=== PATIENT | male | born 1945 | race Caucasian/White ===

== ENCOUNTER 2017-02-25 18:09 | Inpatient (IN) | payer MEDICARE, OTHER ==
[~2017-02-25] VITALS: Ht 177.8 cm; Wt 68.0 kg
--- NOTE | 2017-02-25 18:19 | NUR ---
NEGRO FROM [facility] [place] [facility] FOR MEDICAL CLEARANCE DT DEPRESSION, POSSIBLE GPS ADMISSION. PATIENT IS ON 5150 HOLD- PER REPORT PT HAS BEEN DEPRESSED, BEEN READING ABOUT STAGES OF FOT THE PAST 3 DAYS. PATIENT IS AAO3, APPEARS IN NO APPARENT DISTRESS, RESPIRATION EVEN AND UNLABORED,. PT DENIES ACTUAL PLAN FOR SI. DENIES HALLUCINATION HOWEVER PT ADMITTED BEING DEPRESSED, NOT EATING AND INTERESTED IN LEARNING ABOUT "STAGES OF ". PATIENT IS AFEBRILE. VSS,.
--- NOTE | 2017-02-25 18:25 | NUR ---
URINE SAMPLE SENT TO LAB
[2017-02-25] MEDS ORDERED: AMLO5TAB2 PO (18:56)
[2017-02-25] MEDS ORDERED: LISI40TA4 PO (18:56)
[2017-02-25] MEDS ORDERED: HYDR25TA4 PO (18:56)
[2017-02-25] MEDS ORDERED: DIAZ10TA4 PO (18:59)
[2017-02-25] MEDS ORDERED: ATOR10TA PO (18:59)
[2017-02-25] MEDS ORDERED: ASPI81TA2 PO (18:59)
[2017-02-25] MEDS ORDERED: MULT-659 PO (18:59)
[2017-02-25] MEDS ORDERED: NALT50TA10 PO (19:04)
[2017-02-25] MEDS ORDERED: NAPR500T3 PO (19:04)
[2017-02-25] MEDS: LISINOPRIL (20MG) 20 MG TABLET PO SCH (19:10)
--- NOTE | 2017-02-25 19:32 | NUR ---
report given to beto wharton for gps admission.
--- NOTE | 2017-02-25 19:37 | NUR ---
transported to gps room 261 - 2, no incident noted.
[2017-02-25 19:45] VITALS: BP 148/79
--- NOTE | 2017-02-25 19:45 | NUR ---
GPS ADMISSION NOTE, [place] [facility] [place]IENT ARRIVED ON THIS UNIT AT 1945 VIA WHEELCHAIR WITH 1 LARD MAKER ESCORT. PATIENT ADMITTED ON A 5150 HOLD FOR DTS. PER HOLD PATIENT HAS NO APPETITE, NOT SLEEPING AT NIGHT, HAS BEEN THINKING ABOUT , AND STATES, "WHY GO ON ". THE 5150 WAS REVIEWED AND THE DOCUMENTATION IN THE 5150 HOLD APPEARS TO REFLECT THE PRESENTATION OF THE PATIENT. UPON FACE TO FACE ASSESSMENT PATIENT IS CURRENTLY LYING IN BED AWAKE, HAS NO S/S OR COMPLAINTS OF PAIN. PATIENT IS DISPLAYING NO S/S OF APPARENT DISTRESS. PATIENT BREATHING IS UNLABORED WITH EQUAL RISE AND FALL OF THE CHEST. PATIENT IS ALERT AND ORIENTATED X 3 ON ROOM AIR. PATIENT ASSISTED WITH TURING AND REPOSITIONING Q2HR AND PRN FOR COMFORT AND CIRCULATION. PATIENT HAS NO NEEDS AT THIS TIME. PATIENT IS NOTED TO BEING WITHDRAWN, DEPRESSED, DISHEVELED, DISORGANIZED, COOPERATIVE, AND NEEDS REDIRECTION. PATIENT DENIES SUICIDE IDEATIONS, HAS NO PLAN, AND HOMICIDAL IDEATIONS AT THIS TIME. PATIENT IS UNDER THE PSYCHIATRIC CARE OF DR. SEAY AND THE MEDICAL CARE OF DR RAO. PATIENT BELONGINGS WERE INVENTORIED AND CHECKED FOR CONTRABAND. ALL CONTRABAND REMOVED AND STORED IN PATIENT HALLWAY LOCKER. PATIENT ADVANCED DIRECTIVES PREFERENCE, IMMUNIZATIONS QUESTIONER, NECESSARY PAPERWORK, AND SKIN ASSESSMENT COMPLETED. PATIENT ORIENTATED TO ROOM, FLOOR, AND STAFF WITH ALL QUESTIONS ANSWERED. PATIENT EDUCATED ON THE USE OF THE CALL BALTAZAR. PATIENT BED SIDE RAILS ARE UP X 2 FOR SAFETY. PATIENT BED IS LOCKED, LOW AND I WILL CONTINUE TO MONITOR THIS PATIENT Q 15 MIN WITH THE HELP OF STAFF TO MAINTAIN SAFETY.
[2017-02-25 20:00] VITALS: BP 148/79
[2017-02-25] MEDS ORDERED: MAGNESIUM HYDROXIDE 30 ML UDC PO PRN (20:00)
[2017-02-25] MEDS ORDERED: clonazePAM 0.5 MG TABLET PO PRN (20:00)
[2017-02-25] MEDS ORDERED: ACETAMINOPHEN 325 MG TABLET PO PRN (20:00)
[2017-02-25] MEDS ORDERED: TEMAZEPAM 7.5 MG CAPSULE PO PRN (20:00)
[2017-02-25] MEDS ORDERED: MAG HYDROX/AL HYDROX/SIMETH 30 ML UDC PO PRN (20:00)
--- NOTE | 2017-02-25 21:49 | NUR ---
GPS RN NOTE, PERFORMED ACCU-CHECK ON PATIENT WITH A BLOOD SUGAR RESULT OF 106. NO INSULIN GIVEN AT THIS TIME. WILL CONTINUE TO MONITOR THIS PATIENT.
--- NOTE | 2017-02-25 21:53 | NUR ---
GPS RN NOTE, PATIENT HAS A COMPLAINT OF NOT BEING ABLE TO SLEEP AND WOULD LIKE A SLEEPING AID AT THIS TIME. PATIENT VITAL SIGNS ARE STABLE. GAVE RESTORIL 7.5MG PO HS ORDERED. WILL REASSESS FOR INSOMNIA AND I WILL CONTINUE TO MONITOR THIS PATIENT.
[2017-02-26] MEDS ORDERED: Z GUARD REMEDY 2 OZ OINT TP PRN (02:00)
[2017-02-26 07:42] LABS: BASOPHILS % (AUTO) 0.6 % (0.0-2.0); EOSINOPHILS # (AUTO) 0.1 /CMM (0.0-0.7); EOSINOPHILS % (AUTO) 1.2 % (0.0-6.0); HEMATOCRIT 38 % (39-51); LYMPHOCYTES # (AUTO) 2.1 /CMM (0.8-4.8); MEAN CORPUSCULAR HEMOGLOBIN 32 PG (26.0-33.0); MEAN CORPUSCULAR HGB CONC 34 g/dl (31.0-36.0); MEAN CORPUSCULAR VOLUME 92 fL (80-96); MONOCYTES # (AUTO) 0.6 /CMM (0.1-1.30); MONOCYTES % (AUTO) 8.7 % (2.0-12.0); NEUTROPHILS # (AUTO) 4.5 /CMM (1.8-8.9); NEUTROPHILS % (AUTO) 61.5 % (43.0-81.0); PLATELET COUNT (AUTO) 278 /CMM (150-450); RDW COEFFICIENT OF VARIATION 13.3 (11.5-15.0); RED BLOOD CELL COUNT(AUTO) 4.13 MIL/uL (4.5-6.0); WHITE BLOOD COUNT (AUTO) 7.4 K/uL (4.3-11.0)
[2017-02-26 07:50] LABS: ALBUMIN 3.5 g/dL (3.4-5.0); BILIRUBIN,TOTAL 0.3 mg/dL (0.2-1.0); CALCIUM, SERUM 8.6 mg/dL (8.5-10.1); CREATININE 1.9 mg/dL (0.6-1.3); POTASSIUM 3.8 mmol/L (3.5-5.1); TOTAL PROTEIN, SERUM 6.8 g/dL (6.4-8.2)
[2017-02-26 08:00] VITALS: BP 95/53
[2017-02-26] MEDS: LISINOPRIL (20MG) 20 MG TABLET PO SCH (08:27)
[2017-02-26] MEDS: ASPIRIN 81 MG TAB.CHEW PO SCH (09:57)
[2017-02-26] MEDS: MULTIVIT, IRON, MIN NO. 8, FA 1 TAB TABLET PO SCH (09:57)
[2017-02-26] MEDS: NAPROXEN 500 MG TABLET PO SCH ×2 (09:58→17:34)
[2017-02-26 16:00] VITALS: BP 117/64
[2017-02-26 20:00] VITALS: BP 114/59
--- NOTE | 2017-02-26 20:59 | NUR ---
GPS/RN NOTE: QUIETLY RESTING IN BED, RESPONDS WELL WHEN ENGAGED. NO APPARENT DISTRESS NOTED. WILL CONTINUE TO MONITOR Q 15 MINS. TO MAINTAIN SAFETY.
[2017-02-26] MEDS: ATORVASTATIN 10 MG TABLET PO SCH (21:22)
[2017-02-26] MEDS: MIRTAZAPINE 15 MG TABLET PO SCH (21:26)
[2017-02-27 08:00] VITALS: BP 101/53
[2017-02-27] MEDS: ASPIRIN 81 MG TAB.CHEW PO SCH (08:22)
[2017-02-27] MEDS: NAPROXEN 500 MG TABLET PO SCH ×2 (08:22→16:36)
[2017-02-27] MEDS: MULTIVIT, IRON, MIN NO. 8, FA 1 TAB TABLET PO SCH (08:22)
[2017-02-27] MEDS: LISINOPRIL (20MG) 20 MG TABLET PO SCH (08:22)
--- NOTE | 2017-02-27 09:30 | NUR ---
[id number]: NOTIFIED DR. KAISER ABOUT LAB VALUES ON 02/26/17: RBC= 4.13, HGB= 13.0, HCT= 38, NA= 146, C02= 109, CREATININE=1.9, HDL CHOLESTEROL= 29. NO NEW ORDER GIVEN AT THIS TIME
[2017-02-27 16:00] VITALS: BP 103/61
[2017-02-27 20:28] VITALS: BP 112/70
[2017-02-27] MEDS: ATORVASTATIN 10 MG TABLET PO SCH (21:15)
[2017-02-27] MEDS: MIRTAZAPINE 15 MG TABLET PO SCH (21:15)
[2017-02-28 07:35] LABS: CALCIUM, SERUM 8.4 mg/dL (8.5-10.1); CREATININE 0.9 mg/dL (0.6-1.3); POTASSIUM 3.9 mmol/L (3.5-5.1)
[2017-02-28 08:00] VITALS: BP 117/60
[2017-02-28] MEDS: LISINOPRIL (20MG) 20 MG TABLET PO SCH (08:43)
[2017-02-28] MEDS: MULTIVIT, IRON, MIN NO. 8, FA 1 TAB TABLET PO SCH (08:43)
[2017-02-28] MEDS: NAPROXEN 500 MG TABLET PO SCH ×2 (08:44→16:38)
[2017-02-28] MEDS: ASPIRIN 81 MG TAB.CHEW PO SCH (08:44)
--- NOTE | 2017-02-28 10:57 | NUR ---
Patient lives alone at [address] [place] [address] ([phone]). Patient stated that he would like to return home upon discharge. bulk intake worker spoke to patient's brother Kelton Cantu who confirmed that patient lives alone in an apartment.bulk intake worker will help form a safe and proper discharge.
[2017-02-28 16:00] VITALS: BP 149/97
[2017-02-28 20:57] VITALS: BP 153/72
[2017-02-28] MEDS: ATORVASTATIN 10 MG TABLET PO SCH (21:13)
[2017-02-28] MEDS: MIRTAZAPINE 15 MG TABLET PO SCH (21:16)
[2017-03-01 08:00] VITALS: BP 137/64
[2017-03-01] MEDS: ASPIRIN 81 MG TAB.CHEW PO SCH (08:29)
[2017-03-01] MEDS: MULTIVIT, IRON, MIN NO. 8, FA 1 TAB TABLET PO SCH (08:29)
[2017-03-01] MEDS: LISINOPRIL (20MG) 20 MG TABLET PO SCH (08:30)
[2017-03-01] MEDS: NAPROXEN 500 MG TABLET PO SCH ×2 (09:00→16:36)
--- NOTE | 2017-03-01 11:31 | NUR ---
Psychosocial assessment was reviewed and I concur with the information provided. No changes are necessary. Teri Mark, ASSET MANAGEMENT ANALYST [id number] Addendum: 03/01/17 at 1131 by TERI MARK SW Amended: Links added.
[2017-03-01 16:00] VITALS: BP 101/50
[2017-03-01 20:00] VITALS: BP_SYST 101; BP_SYST 118; BP_DIAS 64; BP_DIAS 67
[2017-03-01] MEDS: MIRTAZAPINE 15 MG TABLET PO SCH (21:16)
[2017-03-01] MEDS: ATORVASTATIN 10 MG TABLET PO SCH (21:17)
[2017-03-02 08:00] VITALS: BP 122/71
[2017-03-02] MEDS: MULTIVIT, IRON, MIN NO. 8, FA 1 TAB TABLET PO SCH (08:16)
[2017-03-02] MEDS: ASPIRIN 81 MG TAB.CHEW PO SCH (08:16)
[2017-03-02] MEDS: LISINOPRIL (20MG) 20 MG TABLET PO SCH (08:17)
[2017-03-02] MEDS: NAPROXEN 500 MG TABLET PO SCH ×3 (08:17→17:00)
--- NOTE | 2017-03-02 08:20 | NUR ---
COUNSELING PROGRAM LEADER-NOTES PATIENT REFUSED NAPROXEN 500MG P.O STATED" I DON'T NEED IT ,MY LEG IS FINE".EXPLAINED RISK AND BENEFITS STILL REFUSED. OFFERED X3.
--- NOTE | 2017-03-02 14:49 | NUR ---
chemical worker faxed (progress notes and 5150 hold) to Gracie (phone: [phone]/ fax: [phone]) from the [place] tranfer office upon her request. chemical worker will follow-up.
[2017-03-02 16:14] VITALS: BP 135/72
--- NOTE | 2017-03-02 17:25 | NUR ---
MANUFACTURING GROUP LEADER-NOTES PATIENT STILL REFUSED NAPROXEN 500MG P.O .STATED" I DON'T NEED IT". OFFERED X3.
[2017-03-02 20:00] VITALS: BP 135/69
[2017-03-02] MEDS: MIRTAZAPINE 15 MG TABLET PO SCH (21:31)
[2017-03-02] MEDS: ATORVASTATIN 10 MG TABLET PO SCH (21:31)
[2017-03-03 08:00] VITALS: BP 116/69
[2017-03-03] MEDS: LISINOPRIL (20MG) 20 MG TABLET PO SCH (08:11)
[2017-03-03] MEDS: NAPROXEN 500 MG TABLET PO SCH ×2 (08:11→16:38)
[2017-03-03] MEDS: MULTIVIT, IRON, MIN NO. 8, FA 1 TAB TABLET PO SCH (08:11)
[2017-03-03] MEDS: ASPIRIN 81 MG TAB.CHEW PO SCH (08:11)
[2017-03-03 08:29] VITALS: BP 116/69
[2017-03-03 16:00] VITALS: BP 127/68
--- NOTE | 2017-03-03 19:43 | NUR ---
GPS/RN NOTE: UP AMBULATING AT THE HALLWAY TO THE DINING AREA. CALM AND RESPONDS WELL WHEN ENGAGED. NO ACUTE DISTRESS NOTED.
[2017-03-03 20:00] VITALS: BP 145/78
[2017-03-03] MEDS: ATORVASTATIN 10 MG TABLET PO SCH (21:45)
[2017-03-03] MEDS: MIRTAZAPINE 15 MG TABLET PO SCH (21:45)
[2017-03-04 08:00] VITALS: BP 153/84
[2017-03-04 08:23] VITALS: BP 153/84
[2017-03-04] MEDS: NAPROXEN 500 MG TABLET PO SCH (08:23)
[2017-03-04] MEDS: MULTIVIT, IRON, MIN NO. 8, FA 1 TAB TABLET PO SCH (08:23)
[2017-03-04] MEDS: LISINOPRIL (20MG) 20 MG TABLET PO SCH (08:23)
[2017-03-04] MEDS: ASPIRIN 81 MG TAB.CHEW PO SCH (08:23)
--- NOTE | 2017-03-04 11:05 | NUR ---
Dr. Scott gave an order to D/C hold and D/C home, pt. without distress, denies suicidal and homicidal. Dr. Elder made aware of the discharge and said ok for discharge and wrote a prescription. Pt. signed the discharge papers, pictures taken for the skin issues and belongings returned. Pt. left the unit at 1105 [facility] and with belongings. Pt. was picked up by Levy Rojo the water truck driver. Left without distress and on stable condition. V/S taken: BP 143/97, RI 78, temp 98%, oxygen sat 95% and RR 18.
--- NOTE | 2017-03-07 09:28 | NUR ---
Discharge Note: Patient was discharged to [facility] [address] [address] ([phone]) via [facility] transportation. Patient stated that he had an appointment that he did not want to miss and was very anxious because he thought he would miss it. Patient stated that from the MD he would catch a shuttle at 3:30PM that would take him home to [place]. Patient was agreeable with the discharge plan of going to his appointment to the MD and than catching the shuttle back home [address] [place] [address] ([phone]). Patient agreed to follow-up with his psychiatrist Dr. Jackson [address] [facility] [id number]. advertising layout worker referred him to [facility] for a walk in intake appointment March 05, 2017 from 8:30 am-7:00pm. Gigi E Padmini [facility] [id number] ([phone]) for alcohol dependency. Facilitated info to IDT team who are in agreement with discharge arrangement. The multidisciplinary exitcare form was done, printed, signed, and given to the patient.
== END 2017-03-04 11:05 | disposition home or self-care (01) | DRG 885 ==
LOC: ER 18:13 → GPS 19:15
PROVIDERS: ADMIT Psychiatry & Neurology Psychiatry; ATTEND Family Medicine
DX: F33.2 Major depressive disorder, recurrent severe without psychotic features (principal); N18.3 Chronic kidney disease, stage 3 (moderate); R45.851 Suicidal ideations; E78.5 Hyperlipidemia, unspecified; R73.03 Prediabetes; I73.9 Peripheral vascular disease, unspecified; M81.0 Age-related osteoporosis without current pathological fracture; Z79.899 Other long term (current) drug therapy; Z79.82 Long term (current) use of aspirin; F10.10 Alcohol abuse, uncomplicated; I12.9 Hypertensive chronic kidney disease with stage 1 through stage 4 chronic kidney disease, or unspecified chronic kidney disease
CPT/HCPCS: 36415; 80048-TC; 80053-TC; 80061-TC; 82962-TC; 85025-TC; 87081-TC; A4606; Z7610